=== PATIENT | male | born 1955 | race Asian ===

== ENCOUNTER 2023-06-13 11:21 | Emergency (ER) | payer OTHER ==
[~2023-06-13] VITALS: Ht 170.2 cm; Wt 80.7 kg
[2023-06-13 11:48] VITALS: BP 132/73; PULSE 108; RESP 16; TEMP 99.5; O2SAT 95
[2023-06-13 12:23] LABS: APPEARANCE,URINE CLEAR (CLEAR); BILIRUBIN,URINE NEGATIVE (NEGATIVE); BLOOD, URINE 2+ (NEGATIVE); COLOR,URINE YELLOW (YELLOW); LEUKOCYTE ESTERASE ,URINE NEGATIVE (NEGATIVE); NITRITE, URINE NEGATIVE (NEGATIVE); PROTEIN,URINE TRACE (NEGATIVE); UGLUCOSE 2+ (NEGATIVE)
[2023-06-13 12:40] LABS: BASOPHILS % (AUTO) 0.2 % (0.0-2.0); HEMATOCRIT 40.8 % (36-52); HEMOGLOBIN 13.7 g/dL (12.0-18.0); LYMPHOCYTES # (AUTO) 1.2 K/uL (2.0-11.5); LYMPHOCYTES % (AUTO) 12.2 % (20.5-51.1); MEAN CORPUSCULAR HEMOGLOBIN 33 pg (27-31); MEAN CORPUSCULAR HGB CONC 34 g/dL (33-37); MEAN CORPUSCULAR VOLUME 97.1 fL (80-94); MONOCYTES # (AUTO) 0.9 K/uL (0.8-1.0); MONOCYTES % (AUTO) 9.7 % (1.7-9.3); NEUTROPHILS # (AUTO) 7.6 K/uL (1.8-7.7); NEUTROPHILS % (AUTO) 77.9 % (42.2-75.2); PLATELET COUNT (AUTO) 144 K/uL (140-450); RED CELL DISTRIBUTION WIDTH 12.7 % (11.6-13.7); WHITE BLOOD COUNT (AUTO) 9.8 K/uL (4.8-10.8)
[2023-06-13 12:41] LABS: BACTERIA,URINE 0-2 /HPF (None Seen); SQUAMOUS EPITHELIAL CELL,UR 0-3 (FEW) /LPF (0-3 (FEW)); WBC,URINE 0-5 /HPF (0-5)
[2023-06-13 12:56] LABS: ALBUMIN 3.3 g/dL (3.4-5.0); ANION GAP 10.8 (8-16); CALCIUM 8.4 mg/dL (8.5-10.1); CARBON DIOXIDE 26.7 mmol/L (21-32); CREATININE 1.1 mg/dL (0.6-1.3); POTASSIUM 3.5 mmol/L (3.5-5.1); TOTAL PROTEIN, SERUM 7.3 g/dL (6.4-8.2)
[2023-06-13] MEDS ORDERED: KETOROLAC 30 MG/ML VIAL IM ONE (14:25)
[2023-06-13] MEDS ORDERED: CEPH-588 PO (15:00)
[2023-06-13] MEDS ORDERED: IBUP-2213 PO (15:00)
[2023-06-13] MEDS ORDERED: PRED20TA5 PO (16:27)
[2023-06-13 16:33] VITALS: BP 130/73; PULSE 88; RESP 16; TEMP 98.9; O2SAT 98
== END 2023-06-13 16:33 | disposition home or self-care (01) ==
LOC: MED 11:21
DX: N39.0 Urinary tract infection, site not specified (principal); J40 Bronchitis, not specified as acute or chronic; Z79.899 Other long term (current) drug therapy; Z79.2 Long term (current) use of antibiotics; Z79.1 Long term (current) use of non-steroidal anti-inflammatories (NSAID)
CPT/HCPCS: 36415; 74176; 80053; 81001; 83690; 85025; 96372; 99285; J1885